=== PATIENT | female | born 2005 | race Caucasian/White ===

== ENCOUNTER 2023-10-25 10:50 | Emergency (ER) | payer MEDICAID ==
[2023-10-25] MEDS: LORazepam 2 MG/ML SDV IM PRN ×2 (11:18→11:48)
[2023-10-25] MEDS: Lidocaine 1% 10 ML MDV INJECT ONE (11:19)
[2023-10-25] MEDS: Bacitracin Oint 1 GM U/D Packet TOP ONE (12:22)
== END 2023-10-25 12:33 | disposition home or self-care (01) ==
LOC: JP.ED 10:50
DX: L02.414 Cutaneous abscess of left upper limb (principal)
CPT/HCPCS: 10060; 96372; 99283; J2060

== ENCOUNTER 2024-07-04 21:12 | Emergency (ER) | payer MEDICAID | END 2024-07-04 22:10 | disposition home or self-care (01) | LOC: JP.ED 21:12 | DX: S01.85XA Open bite of other part of head, initial encounter (principal); F17.210 Nicotine dependence, cigarettes, uncomplicated; Z86.16 Personal history of COVID-19; W54.0XXA Bitten by dog, initial encounter | CPT/HCPCS: 99282; 99283 ==